=== PATIENT | female | born 1960 | race Caucasian/White ===

== ENCOUNTER → 2016-04-18 | Outpatient (CLI) | payer BC ==
[~2016-04-18] MED LIST: AMOXICILLIN 8751 TAB PO; DESYREL 50MG50 MG; FLONASE NASAL S16 GM NS; KLONOPIN 1MG1 MG PO; NORCO 325 MG-51 TAB PO; PROMETHAZINE12.5 M5 PO; WELLBUTRIN XL150 M1 PO; WELLBUTRIN XL300 M1 PO; ZYRTEC-D 12HR 51 TER PO
== END ==
LOC: BHSO 08:30
DX: F33.41 Major depressive disorder, recurrent, in partial remission (principal)

== ENCOUNTER → 2016-05-31 | Outpatient (CLI) | payer BC | LOC: BHSO 08:23 | DX: F33.41 Major depressive disorder, recurrent, in partial remission (principal) ==

== ENCOUNTER → 2016-12-27 | Outpatient (CLI) | payer BC | LOC: BHSO 08:18 | DX: F33.42 Major depressive disorder, recurrent, in full remission (principal) ==

== ENCOUNTER 2017-08-28 09:57 | Inpatient (IN) | payer OTHER ==
[~2017-08-28] VITALS: Ht 154.9 cm; Wt 81.6 kg
[~2017-08-28 09:57] MED LIST changes: +COLACE 100100 MG/CAP PO; -DESYREL 50MG50 MG; +DESYREL 50MG50 MG PO; +DITROPAN 5MG TAB5 MG PO; +DULCOLAX S10 MG/SUPP RC; +DULCOLAX TAB5 MG PO; +FLEXERIL 1010 MG/TAB PO; +MIRALAX PA17 GM/Dose PO; +MOTRIN 200200 MG/TAB PO; +PRISTIQ 50 MG T50 MG PO; +ROXICODONE 55 MG/TAB PO; +TYLENOL 325MG325 MG PO; -WELLBUTRIN XL150 M1 PO; +WELLBUTRIN XL150 MG PO; -ZYRTEC-D 12HR 51 TER PO; +ZYRTEC-D 5 MG-11 TER PO
[2017-08-28 13:54] VITALS: BP 130/65; PULSE 68; TEMP 98.3
[2017-08-28 17:44] VITALS: BP 127/67; PULSE 66; TEMP 97.8
[2017-08-29 05:36] VITALS: BP 112/64; PULSE 62; TEMP 97.8
[2017-08-29 16:33] VITALS: BP 116/71; PULSE 74; TEMP 98.1
[2017-08-30 04:04] VITALS: BP 101/63; PULSE 61; TEMP 98
[2017-08-30 16:08] VITALS: BP 121/58; PULSE 63; TEMP 98.3
[2017-08-31 05:20] VITALS: BP 118/57; PULSE 67; TEMP 98
[2017-08-31] MEDS ORDERED: WELLBUTRIN XL300 M1 PO (11:26)
[2017-08-31] MEDS ORDERED: ZYRTEC 10MG10 MG PO (11:27)
[2017-08-31 16:12] VITALS: BP 98/59; PULSE 70; TEMP 98.1
[2017-09-01 05:24] VITALS: BP 104/56; PULSE 72; TEMP 98
[2017-09-01 11:23] LABS: COLLECTION METHOD CLEAN CATCH
[2017-09-01 11:30] LABS: MUCOUS Present /lpf; PH 6 (5-8); SQUAMOUS EPITHELIAL 0-2 /hpf; URINE APPEARANCE Clear; URINE BACTERIA Rare /hpf; URINE BILIRUBIN Negative (NEGATIVE); URINE BLOOD Negative (NEGATIVE); URINE COLOR Straw; URINE GLUCOSE Negative (NEGATIVE); URINE KETONE Negative (NEGATIVE); URINE LEUKOCYTE ESTERASE Trace (NEGATIVE); URINE NITRATE Negative (NEGATIVE); URINE PROTEIN(semi-quant) Negative (NEGATIVE); URINE RBC 0-2 /hpf; URINE UROBILINOGEN Negative (NEGATIVE)
[2017-09-01 15:37] VITALS: BP 125/69; PULSE 77; TEMP 97.9
[2017-09-02 06:24] VITALS: BP 152/90; PULSE 76; TEMP 97.5
[2017-09-02 16:56] VITALS: BP 144/69; PULSE 83; TEMP 98.1
[2017-09-03 06:04] VITALS: BP 118/58; PULSE 74; TEMP 97.9
[2017-09-03 16:50] VITALS: BP 127/71; PULSE 81; TEMP 98.5
[2017-09-04 04:57] VITALS: BP 126/69; PULSE 62; TEMP 98
[2017-09-04 19:14] VITALS: BP 129/67; PULSE 75; TEMP 98.4
[2017-09-05 05:31] VITALS: BP 110/64; PULSE 64; TEMP 98.6
[2017-09-05] MEDS ORDERED: BENADRYL50 MG PO (08:50)
[2017-09-05] MEDS ORDERED: PROCTOZONE-HC2.5% TOP (08:52)
[2017-09-05] MEDS ORDERED: BACTROBAN 22GM22 GM NAS (08:57)
[2017-09-05] MEDS ORDERED: PREDNISONE20 MG PO (08:58)
== END 2017-09-05 13:05 | disposition home or self-care (01) | DRG 561 ==
PROVIDERS: Internal Medicine
DX: S32.502D Unspecified fracture of left pubis, subsequent encounter for fracture with routine healing (principal); F41.8 Other specified anxiety disorders; W31.9XXD Contact with unspecified machinery, subsequent encounter; R21 Rash and other nonspecific skin eruption
CPT/HCPCS: 99222-AI; 99232-AI; 99233-AI; 99239; J1650; J7512

== ENCOUNTER → 2017-10-01 | Outpatient (CLI) | payer BC ==
[~2017-10-01] MED LIST changes: +BACTROBAN 22GM22 GM NAS; +BENADRYL50 MG PO; +PREDNISONE20 MG PO; +PROCTOZONE-HC2.5% TOP; +ZYRTEC 10MG10 MG PO
== END ==
LOC: COL.RAD 17:33
DX: K57.30 Diverticulosis of large intestine without perforation or abscess without bleeding (principal); S32.592A Other specified fracture of left pubis, initial encounter for closed fracture; R50.9 Fever, unspecified
CPT/HCPCS: Q9967

== ENCOUNTER → 2017-10-03 | Outpatient (CLI) | payer BC | LOC: BHSO 09:02 | DX: F33.41 Major depressive disorder, recurrent, in partial remission (principal) | CPT/HCPCS: G0463 ==

== ENCOUNTER → 2018-03-12 | Outpatient (CLI) | payer OTHER ==
[~2018-03-12] MED LIST changes: +LEVAQUIN 750MG750 M1 PO; +PHENERGAN 25 TA25 MG PO
== END ==
LOC: COL.RAD 12:46
DX: K57.30 Diverticulosis of large intestine without perforation or abscess without bleeding (principal); Z87.81 Personal history of (healed) traumatic fracture

== ENCOUNTER → 2018-04-27 | Outpatient (CLI) | payer OTHER, BC | LOC: ZCOL.LAB 16:38 | DX: Z01.812 Encounter for preprocedural laboratory examination (principal); Z86.14 Personal history of Methicillin resistant Staphylococcus aureus infection ==

== ENCOUNTER → 2018-05-05 | Outpatient (CLI) | payer BC ==
[~2018-05-05] MED LIST changes: +DESYREL DIVIDO150 M1 PO; +KLONOPIN 0.5MG0.5 MG PO; +MOBIC 7.5MG7.5 MG PO; +NORCO 325 MG-7.1 TAB PO
== END ==
LOC: MC.RAD 14:45
DX: Z12.31 Encounter for screening mammogram for malignant neoplasm of breast (principal)

== ENCOUNTER 2018-05-12 05:20 | Day surgery (SDC) | payer BC ==
[~2018-05-12] VITALS: Ht 154.9 cm; Wt 88.6 kg
[2018-05-12] VITALS (7 sets, daily range): BP systolic 152–169; BP diastolic 68–86; PULSE 50–68; TEMP 97.5–98.1
[~2018-05-12 05:20] MED LIST changes: -DESYREL DIVIDO150 M1 PO; -KLONOPIN 0.5MG0.5 MG PO; -MOBIC 7.5MG7.5 MG PO; -NORCO 325 MG-7.1 TAB PO
[2018-05-12] MEDS ORDERED: DESYREL DIVIDO150 M1 PO (06:20)
[2018-05-12] MEDS ORDERED: MOBIC 7.5MG7.5 MG PO (06:21)
[2018-05-12] MEDS ORDERED: KLONOPIN 0.5MG0.5 MG PO (06:22)
--- NOTE | 2018-05-12 06:31 | NUR ---
TO RM 8 AT 0541- CALL LIGHT IN REACH FRIEND HAILEY AT BEDSIDE.
--- NOTE | 2018-05-12 08:30 | NUR ---
TO [facility] 8 FROM PACU. DROWSY, BUT ANSWERS QUESTIONS COHERENTLY. LEFT LEG ELEVATED, ICE OVER KNEE. DENIES NAUSEA DENIES PAIN OR DISCOMFORT. DRESSINGS CLEAN DRY INTACT.
--- NOTE | 2018-05-12 08:45 | NUR ---
PATIENT SLEEPING QUIETLY FRIEND HAILEY AT BEDSIDE.
[2018-05-12] MEDS ORDERED: NORCO 325 MG-7.1 TAB PO (08:52)
--- NOTE | 2018-05-12 09:00 | NUR ---
RECEIVED MUFFIN AND GRAPE JUICE
--- NOTE | 2018-05-12 09:15 | NUR ---
ATE MUFFIN AND DRANK OF JUICE PATIENT RESTING QUIETLY
--- NOTE | 2018-05-12 10:15 | NUR ---
MORE AWAKE AND TALKING TO FRIEND STATED SHE FEELS A LITTLE SHAKY RECEIVED PUDDING AND SPRITE.
--- NOTE | 2018-05-12 10:50 | NUR ---
STATED SHE FELT BETTER. UP AMBULATED TO BATHROOM USING CRUTCHES AND TOLERATED WELL.
--- NOTE | 2018-05-12 10:55 | NUR ---
RECEIVED DISCHARGE INSTRUCTIONS AND VERBALIZED UNDERSTANDING. DISCONTINUED IV AND INT- CATHETER INTACT IV SITE COVERED WITH COTTON BALL AND COBAN.
--- NOTE | 2018-05-12 11:00 | NUR ---
AFTER GETTING DRESSED, HAD EMESIS IN TRASH CAN. PATIENT LAYED BACK DOWN AND RECEIVED A COOL WASHCLOTH TO FOREHEAD.
--- NOTE | 2018-05-12 11:22 | NUR ---
PATIENT STATED SHE FELT BETTER AND REQUESTED TO GO HOME. DISCHARGED PER BY NURSING STAFF TO PRIVATE CAR IN CARE OF FRIEND HAILEY
== END 2018-05-12 11:30 | disposition home or self-care (01) ==
LOC: SDCO 05:20
DX: M23.222 Derangement of posterior horn of medial meniscus due to old tear or injury, left knee (principal); M17.12 Unilateral primary osteoarthritis, left knee; J42 Unspecified chronic bronchitis; F32.9 Major depressive disorder, single episode, unspecified; R19.7 Diarrhea, unspecified; G43.909 Migraine, unspecified, not intractable, without status migrainosus; J30.2 Other seasonal allergic rhinitis; F41.9 Anxiety disorder, unspecified; Z88.8 Allergy status to other drugs, medicaments and biological substances; Z88.6 Allergy status to analgesic agent; Z90.710 Acquired absence of both cervix and uterus; Z82.5 Family history of asthma and other chronic lower respiratory diseases; Z82.49 Family history of ischemic heart disease and other diseases of the circulatory system; Z80.8 Family history of malignant neoplasm of other organs or systems
CPT/HCPCS: J0690; J1100; J2270; J2405; J2704; J3010; J7120

== ENCOUNTER → 2018-05-18 | Outpatient (CLI) | payer BC, OTHER ==
[~2018-05-18] MED LIST changes: +DESYREL DIVIDO150 M1 PO; +KLONOPIN 0.5MG0.5 MG PO; +MOBIC 7.5MG7.5 MG PO; +NORCO 325 MG-7.1 TAB PO
== END ==
LOC: BHSO 11:23
DX: F41.1 Generalized anxiety disorder (principal)
CPT/HCPCS: G0463

== ENCOUNTER → 2018-08-19 | Outpatient (CLI) | payer BC | LOC: BHSO 10:12 | DX: F33.42 Major depressive disorder, recurrent, in full remission (principal) | CPT/HCPCS: G0463 ==

== ENCOUNTER → 2019-01-27 | Outpatient (CLI) | payer BC | LOC: BHSO 15:22 | DX: F41.1 Generalized anxiety disorder (principal) | CPT/HCPCS: G0463 ==

== ENCOUNTER → 2019-07-28 | Outpatient (CLI) | payer BC | LOC: BHSO 14:51 | DX: F33.42 Major depressive disorder, recurrent, in full remission (principal) | CPT/HCPCS: G0463 ==

== ENCOUNTER → 2019-09-29 | Outpatient (CLI) | payer BC | LOC: ZCOL.LAB 15:46 | DX: J02.9 Acute pharyngitis, unspecified (principal); R53.83 Other fatigue; R19.7 Diarrhea, unspecified; Z20.828 Contact with and (suspected) exposure to other viral communicable diseases ==

== ENCOUNTER 2021-03-10 12:50 | Emergency (ER) | payer OTHER ==
[~2021-03-10] VITALS: Ht 154.9 cm; Wt 84.1 kg
[2021-03-10 14:04] LABS: BASO % 0.2 % (0.0-2.0); EOS % 0.1 % (0.0-4.0); GRAN # 8.9 K/mm3 (1.4-6.5); GRAN % 70.8 % (42.2-75.2); HEMATOCRIT 43.9 % (37.0-47.0); HEMOGLOBIN 15.2 g/dl (12.5-16.0); LYMPH # 2.9 K/mm3 (1.2-3.4); LYMPH % 23.3 % (20.0-51.0); MEAN CELL VOLUME 81 fl (80.0-100.0); MEAN CORPUSCULAR HEMOGLOBIN 28 pg (27-31); MEAN CORPUSCULAR HGB CONC 35 g/dl (33.0-37.0); MEAN PLATELET VOLUME 8.7 fl (7.4-10.4); MONO # 0.7 K/mm3 (0.1-0.6); MONO % 5.4 % (1.7-9.3); PLATELET COUNT 336 K/mm3 (130-400); RED BLOOD COUNT 5.43 M/mm3 (4.10-5.30); REDCELL DISTRIBUTION WIDTH-CV 13.2 % (11.5-14.5)
[2021-03-10 14:20] LABS: ALBUMIN 3.5 gm/dL (3.4-4.8); BILIRUBIN,TOTAL 0.7 mg/dL (0.2-1.2); C-REACTIVE PROTEIN 6.84 mg/dL (0.00-0.50); CALCIUM 8.8 mg/dL (8.4-10.2); CREATININE, serum 0.98 mg/dL (0.57-1.11); POTASSIUM 3.2 mmol/L (3.5-4.5); TOTAL PROTEIN 8.2 gm/dL (6.2-8.1)
[2021-03-10 17:11] VITALS: BP 126/80; PULSE 75; TEMP 98.4
== END 2021-03-10 17:44 | disposition home or self-care (01) ==
LOC: COL.ER 12:50
PROVIDERS: Family Medicine
DX: Z73.0 Burn-out (principal); F32.A Depression, unspecified; F41.9 Anxiety disorder, unspecified; Z79.899 Other long term (current) drug therapy
CPT/HCPCS: J2405; J2550; J7120

== ENCOUNTER → 2021-08-08 | Outpatient (CLI) | payer OTHER | LOC: MC.RAD 14:30 | DX: Z12.31 Encounter for screening mammogram for malignant neoplasm of breast (principal) ==

== ENCOUNTER → 2022-11-11 | Outpatient (CLI) | payer OTHER | LOC: COL.PUL 07:32 | DX: R06.02 Shortness of breath (principal) ==

== ENCOUNTER → 2023-03-10 | Outpatient (CLI) | payer OTHER ==
[~2023-03-10] MED LIST changes: +Albuterol 0.083% Neb Soln 2.5 MG/3 ML UD IH ONE; +Methacholine Vial A (Clear Label Base-Cntrl) IH ONE; +Methacholine Vial B (Red Label) 0.0625 MG/ML 3 ML VIAL.NEB IH ONE; +Methacholine Vial C (Orange Label) 0.25 MG/ML 3 ML VIAL.NEB IH ONE; +Methacholine Vial D (Yellow Label) 1 MG/ML 3 ML VIAL.NEB IH ONE; +Methacholine Vial E (Green Label) 4 MG/ML 3 ML VIAL.NEB IH ONE
== END ==
LOC: COL.CARD 11:56
DX: R06.02 Shortness of breath (principal)
CPT/HCPCS: J7674

== ENCOUNTER 2023-05-19 14:33 | Inpatient (IN) | payer OTHER ==
[~2023-05-19] VITALS: Ht 154.9 cm; Wt 87.9 kg
[~2023-05-19 14:33] MED LIST changes: -Albuterol 0.083% Neb Soln 2.5 MG/3 ML UD IH ONE; -Methacholine Vial A (Clear Label Base-Cntrl) IH ONE; -Methacholine Vial B (Red Label) 0.0625 MG/ML 3 ML VIAL.NEB IH ONE; -Methacholine Vial C (Orange Label) 0.25 MG/ML 3 ML VIAL.NEB IH ONE; -Methacholine Vial D (Yellow Label) 1 MG/ML 3 ML VIAL.NEB IH ONE; -Methacholine Vial E (Green Label) 4 MG/ML 3 ML VIAL.NEB IH ONE
[2023-05-19] MEDS ORDERED: Ondansetron 4 MG/2 ML VIAL IV ONE (17:15)
[2023-05-19] MEDS ORDERED: Ketorolac 15 MG/ML VIAL IV ONE (17:15)
[2023-05-19] MEDS ORDERED: Mag/Al Hydrox/Simeth Susp 30 ML CUP PO ONE (17:15)
[2023-05-19 17:24] LABS: BASO % 0.2 % (0.0-2.0); EOS # 0.1 K/mm3 (0.0-0.7); EOS % 0.5 % (0.0-4.0); GRAN # 7.8 K/mm3 (1.4-6.5); GRAN % 56.6 % (42.2-75.2); HEMATOCRIT 42.5 % (37.0-47.0); HEMOGLOBIN 14.3 g/dl (12.5-16.0); LYMPH % 36.1 % (20.0-51.0); MEAN CELL VOLUME 83 fl (80.0-100.0); MEAN CORPUSCULAR HEMOGLOBIN 28 pg (27-31); MEAN CORPUSCULAR HGB CONC 34 g/dl (33.0-37.0); MEAN PLATELET VOLUME 8.4 fl (7.4-10.4); MONO # 0.9 K/mm3 (0.1-0.6); MONO % 6.2 % (1.7-9.3); PLATELET COUNT 403 K/mm3 (130-400); REDCELL DISTRIBUTION WIDTH-CV 14.7 % (11.5-14.5)
[2023-05-19 17:38] LABS: ALBUMIN 3.8 gm/dL (3.4-4.8); BILIRUBIN,TOTAL 0.5 mg/dL (0.2-1.2); CALCIUM 9.4 mg/dL (8.4-10.2); CREATININE, serum 2.74 mg/dL (0.57-1.11); MAGNESIUM 1.8 mg/dL (1.6-2.6); POTASSIUM 3.9 mmol/L (3.5-4.5); PROTHROMBIN TIME 11.1 SECONDS (9.7-12.8); TOTAL PROTEIN 7.7 gm/dL (6.2-8.1)
[2023-05-19 17:41] LABS: PARTIAL THROMBOPLASTIN TIME 27.6 SECONDS (26.0-37.0)
[2023-05-19 17:43] LABS: D-DIMER < 200.00 ng/mLDDu (200-230)
[2023-05-19 17:44] LABS: TROPONIN-I 0.016 ng/mL (0.00-0.033)
[2023-05-19] MEDS ORDERED: NS 1,000 ML IV ONE (20:30)
[2023-05-19] MEDS ORDERED: LR 1,000 ML IV SCH (20:30)
--- NOTE | 2023-05-19 22:50 | NUR ---
PATIENT ADMITED INTO ROOM 329 FROM ER WITH C/O SOA, DIARRHEA, N/V AND ABD PAIN. MEDICAL SERVICES MANAGER REPORTED PATIENT RECEIVED SEVERAL ACID REFLUX AND NAUSEA MEDS AND WAS LATER SEEN EATING GREENLANDIC FOOD IN ER. PATIENT ALSO REPORTS SHE IS A NEWLY DIAGNOSED DIABETIC AND WAS STARTED ON METFORMIN. SHE ALSO REPORTS TAKING A OTC IBUPROFEN & TYLENOL COMBO DAILY. CREAT IS 2.74, BUN IS 32. NOTED SOFT B/P OF 89/49, HR IN 50'S. FLUID BOLUS ORDERED. 16F HUANG PLACED AND LAB SENT. HEAD TO TOE ASSESSMENT COMPLETE. ORIENTED TO ROOM. CALL LIGHT IN REACH
[2023-05-19 22:55] VITALS: BP 89/49; PULSE 59; TEMP 97.9
[2023-05-19] MEDS ORDERED: VIIBRYD20 MG PO (22:59)
[2023-05-19] MEDS ORDERED: LR 500 ML IV ONE (23:00)
--- NOTE | 2023-05-19 23:00 | NUR ---
DURING ADMISSION TO UNIT, PATIENT WAS FOUND TO BE HYPOTENSIVE IN THE 80'S SYSTOLIC WITH THE DIASTOLIC IN THE 30-40'S. SEE ORDERS FOR FLUID BOLUS. HOSPITALIST AT BEDSIDE.
[2023-05-19] MEDS ORDERED: GLUCOPHAGE500 MG/TAB PO (23:08)
[2023-05-19] MEDS ORDERED: ESTRACE0.5 MG PO (23:08)
[2023-05-19] MEDS ORDERED: COZAAR 50MG50 MG/TAB PO (23:09)
[2023-05-19] MEDS ORDERED: TRELEGY ELLIPT1 EAC1 IH (23:10)
[2023-05-19] MEDS ORDERED: PROAIR HFA0.09 MG/AC IH (23:10)
[2023-05-19] MEDS ORDERED: SYNTHROID 0.0.025 MG PO (23:11)
[2023-05-19] MEDS ORDERED: PRILOSEC 20MG20 MG PO (23:12)
[2023-05-19 23:15] VITALS: BP 87/39; PULSE 58
[2023-05-19] MEDS ORDERED: PRINZIDE 12.5 M1 TAB PO (23:37)
[2023-05-19] MEDS ORDERED: traZODone 50 MG TAB PO PRN (23:45)
[2023-05-19] MEDS ORDERED: clonazePAM 0.5 MG TAB PO PRN (23:45)
[2023-05-19] MEDS ORDERED: Albuterol 0.083% Neb Soln 2.5 MG/3 ML UD IH PRN (23:45)
[2023-05-19] MEDS ORDERED: TEZSPIRE210 MG/1.9 SQ (23:50)
[2023-05-19 23:58] LABS: COLLECTION METHOD CLEAN CATCH
[2023-05-20] VITALS (13 sets, daily range): BP systolic 94–112; BP diastolic 49–74; PULSE 57–67; TEMP 97.6–98.2
[2023-05-20] MEDS ORDERED: Heparin 5,000 UNITS/ML 1 ML VIAL SQ SCH
[2023-05-20 00:04] LABS: URINE APPEARANCE CLOUDY (CLEAR/HAZY); URINE BLOOD NEGATIVE (NEGATIVE); URINE COLOR YELLOW (YELLOW); URINE GLUCOSE NEGATIVE (NEGATIVE); URINE KETONE NEGATIVE (NEGATIVE); URINE NITRATE NEGATIVE (NEGATIVE); URINE PROTEIN(semi-quant) NEGATIVE (NEGATIVE); URINE UROBILINOGEN 0.2 E.U/dL (0.2-1.0)
[2023-05-20] MEDS ORDERED: Dextrose (Glucose) 15 GM (4 x 3.75 GM) Chewable TABLET PACK PO PRN (00:15)
[2023-05-20] MEDS ORDERED: Dextrose 50% Water 25 GM/50 ML SYRINGE IV PRN (00:15)
[2023-05-20] MEDS ORDERED: Glucagon 1 MG VIAL IM PRN (00:15)
[2023-05-20] MEDS ORDERED: Omeprazole 20 MG **** subs to Pantoprazole 40 MG PO SCH (07:00)
[2023-05-20 07:18] LABS: BASO % 0.3 % (0.0-2.0); EOS # 0.2 K/mm3 (0.0-0.7); GRAN # 2.7 K/mm3 (1.4-6.5); GRAN % 36.9 % (42.2-75.2); LYMPH % 53.5 % (20.0-51.0); MEAN CELL VOLUME 84 fl (80.0-100.0); MEAN CORPUSCULAR HGB CONC 33 g/dl (33.0-37.0); MONO # 0.5 K/mm3 (0.1-0.6); MONO % 7.2 % (1.7-9.3); RED BLOOD COUNT 4.06 M/mm3 (4.10-5.30); REDCELL DISTRIBUTION WIDTH-CV 15.1 % (11.5-14.5)
[2023-05-20 07:32] LABS: CALCIUM 7.9 mg/dL (8.4-10.2); CREATININE, serum 1.59 mg/dL (0.57-1.11); POTASSIUM 3.8 mmol/L (3.5-4.5)
[2023-05-20 07:37] LABS: HEMATOCRIT 34.2 % (37.0-47.0); HEMOGLOBIN 11.3 g/dl (12.5-16.0); MEAN CORPUSCULAR HEMOGLOBIN 28 pg (27-31); MEAN PLATELET VOLUME 8.6 fl (7.4-10.4); PLATELET COUNT 290 K/mm3 (130-400)
[2023-05-20] MEDS ORDERED: Insulin Lispro (HumaLOG) SQ SCH (08:00)
[2023-05-20] MEDS ORDERED: buPROPion XL (24-HR) 150 MG TAB PO SCH ×2 (09:00)
[2023-05-20] MEDS ORDERED: Vilazodone 10 MG TAB PO SCH (09:00)
[2023-05-20] MEDS ORDERED: Patient's Own Medication Item IH SCH (09:00)
[2023-05-20] MEDS ORDERED: Cetirizine 10 MG TAB PO SCH (09:00)
--- NOTE | 2023-05-20 09:32 | NUR ---
PT LAYING IN BED, ALERT AND ORIENTEDX4. PT RATES PAIN 3/10 IN THE UPPER ABDOMEN. ORDERED ABDOMINAL ULTRA SOUND. PT ATE BREAKFAST AND TOLERATED. MADE PT NPO AFTER US ORDER. ASSESSED. STUDENT NURSE IS GIVING MORNING MEDICATIONS. CALL LIGHT WITHIN REACH.
--- NOTE | 2023-05-20 10:21 | NUR ---
Initial visit; Patient thanked Confidential Investigator for looking in on her and offering Spiritual Care. Patient requests prayer for over all healing. Since her knee surgery she is now having other issues. Kaylyn seemed pleased that Confidential Investigator visited. Confidential Investigator will follow up.
[2023-05-20] MEDS ORDERED: Acetaminophen 325 MG TAB PO PRN (10:30)
[2023-05-20] MEDS ORDERED: ALLEGRA 180MG180 MG PO (10:51)
--- NOTE | 2023-05-20 13:19 | NUR ---
Social Work met with patient at bedside to discuss discharge planning. Patient verified that she lives in [place] alone, is independent with all activities. Patient lists her son david ([phone]) and friend Raquel ([phone]) as her contacts. Patient states she does not have a DPOA completed but states she can do one while in hospital. Patient sees Dr. Flores as her PCP, uses [facility] pharmacy and has a chower chair, walker, cane and CPAP provided by [employer]. Patient states her family or friend will transport her home at discharge. No other needs identified at this time. Discharge Plan: Home
[2023-05-20] MEDS ORDERED: Budesonide Neb Susp 0.5 MG/2 ML AMP IH SCH (15:00)
[2023-05-20] MEDS ORDERED: Formoterol Neb Soln 20 MCG/2 ML UD IH SCH (15:00)
--- NOTE | 2023-05-20 20:00 | NUR ---
PATIENT IS ORIENTED BUT DROWSY AND READY FOR BED. PATIENT REQUESTING PRN SLEEP AID, GIVEN WITH HS MEDS, SEE MAR. VSS. NO COMPLAINTS. HEAD TO TOE ASSESSMENT WNL. CALL LIGHT IN REACH.
[2023-05-21] VITALS (12 sets, daily range): BP systolic 99–127; BP diastolic 58–74; PULSE 57–66; TEMP 97.5–98.4
--- NOTE | 2023-05-21 08:46 | NUR ---
PT LAYING IN BED, ALERT AND ORIENTEDX4. RATES PAIN 3/10 IN THE ABDOMEN. ASSESSED. COLLEGE FOOTBALL COACH WILL BE GIVING PT MORNING MEDS. NO OTHER COMPLAINTS AT THIS TIME FROM THE PT. CALL LIGHT WITHIN REACH.
[2023-05-21 09:36] LABS: BASO % 0.3 % (0.0-2.0); EOS # 0.1 K/mm3 (0.0-0.7); EOS % 2.3 % (0.0-4.0); GRAN # 2.7 K/mm3 (1.4-6.5); GRAN % 42.9 % (42.2-75.2); HEMOGLOBIN 11.6 g/dl (12.5-16.0); LYMPH % 48.6 % (20.0-51.0); MEAN CELL VOLUME 84 fl (80.0-100.0); MEAN CORPUSCULAR HEMOGLOBIN 28 pg (27-31); MEAN CORPUSCULAR HGB CONC 34 g/dl (33.0-37.0); MEAN PLATELET VOLUME 8.4 fl (7.4-10.4); MONO # 0.4 K/mm3 (0.1-0.6); MONO % 5.6 % (1.7-9.3); PLATELET COUNT 286 K/mm3 (130-400); RED BLOOD COUNT 4.09 M/mm3 (4.10-5.30); REDCELL DISTRIBUTION WIDTH-CV 14.8 % (11.5-14.5)
[2023-05-21 09:38] LABS: HEMATOCRIT 34.5 % (37.0-47.0)
[2023-05-21 09:53] LABS: CALCIUM 8.5 mg/dL (8.4-10.2); CREATININE, serum 0.84 mg/dL (0.57-1.11); POTASSIUM 4.2 mEq/L (3.5-4.5)
--- NOTE | 2023-05-21 15:22 | NUR ---
Follow-up visit; Patient thanked Play Writer for looking in on her again today and continuing to offer her Blessings for healing.
--- NOTE | 2023-05-21 17:26 | NUR ---
GOT VERBAL ORDER FROM DR CABRAL TO JAMAAL HUANG. TOOK OUT PT REINA AT 1720.
--- NOTE | 2023-05-21 22:59 | NUR ---
Patient alert and oriented x4. Shift assessment complete. Denies increase in pain, states she just has ongoing upper abdominal discomfort. Scheduled TUMS administered. Tolerating food and fluids well. Patient has voided since discontinuing schroeder catheter this afternoon, denies urinary issues. LR infusing per orders through LAC. Call light within reach, all needs met at this time.
[2023-05-22 00:35] VITALS: BP_SYST 99
[2023-05-22 03:41] VITALS: BP 106/71; PULSE 55; TEMP 97.9
[2023-05-22 04:02] VITALS: BP_SYST 106
[2023-05-22 06:37] LABS: BASO % 0.3 % (0.0-2.0); EOS # 0.2 K/mm3 (0.0-0.7); EOS % 2.9 % (0.0-4.0); GRAN # 2.5 K/mm3 (1.4-6.5); GRAN % 35.6 % (42.2-75.2); HEMOGLOBIN 11.1 g/dl (12.5-16.0); LYMPH # 3.8 K/mm3 (1.2-3.4); LYMPH % 54.1 % (20.0-51.0); MEAN CELL VOLUME 85 fl (80.0-100.0); MEAN CORPUSCULAR HEMOGLOBIN 28 pg (27-31); MEAN CORPUSCULAR HGB CONC 33 g/dl (33.0-37.0); MEAN PLATELET VOLUME 8.4 fl (7.4-10.4); MONO # 0.5 K/mm3 (0.1-0.6); PLATELET COUNT 258 K/mm3 (130-400); RED BLOOD COUNT 3.99 M/mm3 (4.10-5.30); REDCELL DISTRIBUTION WIDTH-CV 14.4 % (11.5-14.5)
[2023-05-22 06:41] LABS: HEMATOCRIT 33.9 % (37.0-47.0)
[2023-05-22 06:52] LABS: ALBUMIN 2.5 g/dL (3.4-4.8); CALCIUM 8.7 mg/dL (8.4-10.2); CREATININE, serum 0.91 mg/dL (0.57-1.11); MAGNESIUM 1.7 mg/dL (1.6-2.6); PHOSPHOROUS 2.9 mg/dL (2.3-4.7); POTASSIUM 4.2 mEq/L (3.5-4.5)
[2023-05-22 07:06] VITALS: BP 112/75; PULSE 59; TEMP 98
--- NOTE | 2023-05-22 08:29 | NUR ---
Pt sitting up in bed. PT is A&Ox4. VSS. S1S2. Clear lung sounds. ABD is rounded, soft, non-tender. Pt denies n/v, headache, dizziness. Pt reports 2/10 epigastric pain. Per Pt pain is better than yesterday and tolerable. Declined intervention at this time. REpenished ice bag for R knee discomfort. Palpable pulses and normal strength in all extremities. Disconected Pt from fluids as per provider order. Administered AM meds as per EMAR. Pt has call light in reach and no further needs at this time.
[2023-05-22 09:00] VITALS: BP_SYST 112
--- NOTE | 2023-05-22 09:00 | NUR ---
Pt is laying in bed with son at bedside. Son is POA. Hospital interpretor used during assessment. Pt alert, oriented to self. Reoriented to time, place, reason. S1S2. Clear lungs, diminished in bases. ABD is soft, rounded, non-tender. Pt denies pain, n/v, dizziness at this time. Palpable pulses in all extremities. Ballard in place with yellow, clear urine. L AC IV patent with LR at 100 mL/hr. SCDs are on. Pt has call light in reach and bed alarm on.
--- NOTE | 2023-05-22 10:14 | NUR ---
Educated Pt on discharge information and instructions. Answered Pt questions. Discontinued IV. Catheter tip intact. Pt transported to car via WC. Friend drove Pt home.
--- NOTE | 2023-05-22 10:29 | NUR ---
Follow-up visit; Kaylyn thanked Cryogenic Transport Driver for looking in on her while she has been here and says she is going home and promises Cryogenic Transport Driver she will rest when she gets there. Cryogenic Transport Driver offered God's blessings and a Happy Easter. Kaylyn wishes the same for Cryogenic Transport Driver.
== END 2023-05-22 10:10 | disposition home or self-care (01) | DRG 684 ==
LOC: COL.ER 14:33 → SURG 20:31
PROVIDERS: Internal Medicine; Physician Assistant; ADMIT Internal Medicine
DX: N17.9 Acute kidney failure, unspecified (principal); K52.9 Noninfective gastroenteritis and colitis, unspecified; E66.9 Obesity, unspecified; F41.9 Anxiety disorder, unspecified; F32.A Depression, unspecified; Z96.611 Presence of right artificial shoulder joint; E03.9 Hypothyroidism, unspecified; J45.909 Unspecified asthma, uncomplicated; T38.3X5A Adverse effect of insulin and oral hypoglycemic [antidiabetic] drugs, initial encounter; T46.4X5A Adverse effect of angiotensin-converting-enzyme inhibitors, initial encounter; E86.0 Dehydration; T50.2X5A Adverse effect of carbonic-anhydrase inhibitors, benzothiadiazides and other diuretics, initial encounter; T39.315A Adverse effect of propionic acid derivatives, initial encounter; E11.9 Type 2 diabetes mellitus without complications; E86.9 Volume depletion, unspecified; Z88.5 Allergy status to narcotic agent; Z86.14 Personal history of Methicillin resistant Staphylococcus aureus infection; Z90.710 Acquired absence of both cervix and uterus; Z79.899 Other long term (current) drug therapy; Z79.84 Long term (current) use of oral hypoglycemic drugs; Z79.890 Hormone replacement therapy; Z68.36 Body mass index [BMI] 36.0-36.9, adult
CPT/HCPCS: J1644; J1885; J2405; J7030; J7120